=== PATIENT | female | born 1995 | race Hispanic/Latino ===

== ENCOUNTER 2017-10-19 00:23 | Emergency (ER) | payer BC ==
[~2017-10-19] VITALS: Ht 157.5 cm; Wt 52.2 kg
[2017-10-19 01:19] VITALS: BP 116/72
== END 2017-10-19 01:25 | disposition home or self-care (01) ==
LOC: ER 00:23 → FSED 01:25
DX: R30.0 Dysuria (principal); N30.91 Cystitis, unspecified with hematuria
CPT/HCPCS: 81003; 81025; 99283